=== PATIENT | female | born 1950 | race Caucasian/White ===

== ENCOUNTER → 2016-06-28 21:45 | Emergency (ER) | payer SELFPAY ==
[~2016-06-28 21:45] MED LIST: Potassium Chlor TAB* 20 MEQ TAB.ER PO ONE
[2016-06-28 23:24] LABS: Hematocrit 43 % (35-47); Hemoglobin 14.3 g/dl (12.0-16.0); Mean Corpuscular HGB Conc 33 g/dl (31-36); Mean Corpuscular Hemoglobin 30 pg (27-31); Mean Corpuscular Volume 92 fL (80-97); Mean Platelet Volume 9 um3 (7.4-10.4); Red Blood Count 4.72 10^6/ul (4.0-5.4); Red Cell Distribution Width 13 % (10.5-15); White Blood Count 11.1 10^3/ul (3.5-10.8)
[2016-06-28 23:32] LABS: Albumin 4.4 g/dL (3.2-5.2); BUN/Creatinine Ratio 19.4 (8-20); Calcium 9.5 mg/dL (8.6-10.3); EGFR African American 104.5 (>60); EGFR Non-African American 81.3 (>60); Globulin 3.4 g/dL (2-4); Potassium 3.3 mmol/L (3.5-5.0); Total Bilirubin 0.5 mg/dL (0.2-1.0); Total Protein 7.8 g/dL (6.4-8.9)
[2016-06-28 23:33] LABS: Troponin I 0.01 ng/mL (<0.04)
--- NOTE | 2016-06-29 00:47 | ED ---
Beth Freeman Rebecca, scribed for NahidRobbie on 06/28/16 at 2300 . Upper Extremity Pain - HPI Summary HPI Summary: Pt is a 65 y/o F who presents to ED c/o LUE numbness. Reports numbness began suddenly this morning upon waking up and has been constant since onset. Numbness is from the elbow and down into the hand. 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 Denies CP, SOB, LE weakness. No PMHx TIA, CVA. - History of Current Complaint Chief Complaint: EDExtremityUpper Stated Complaint: NO FEELING IN LEFT HAND Time Seen by Provider: 06/28/16 22:55 Hx Obtained From: Patient Onset/Duration: Started Hours Ago - this morning, Still Present Timing: Constant Severity Initially: Mild Severity Currently: Mild Aggravating Factor(s): Nothing Alleviating Factor(s): Nothing Associated Signs & Symptoms: Positive: Numbness/Tingling - L arm/hand numbness, Other - Denies LE weakness. Negative: Chest Pain, SOB - Allergies/Home Medications Allergies/Adverse Reactions: Allergies Allergy/AdvReac Type Severity Reaction Status Date / Time No Known Allergies Allergy Verified 10/18/13 13:49 PMH/Surg Hx/FS Hx/Imm Hx Endocrine/Hematology History: Denies: Hx Diabetes, Hx Thyroid Disease, Hx Anemia, Hx Unexplained Bleeding Cardiovascular History: Denies: Hx Aneurysm, Hx Angina, Hx Angioplasty, Hx Auto Implanted Cardiovert Defib, Hx Cardiac Arrest, Hx Cardiomegaly, Hx Congenital Heart Disease, Hx Congestive Heart Failure, Hx Coronary Artery Disease, Hx Deep Vein Thrombosis, Hx Embolism, Hx Hypercholesterolemia, Hx Hypotension, Hx Hypertension, Hx Pacemaker/ICD, Hx Peripheral Vascular Disease, Hx Rheumatic Fever, Hx Syncope, Hx Valvular Heart Disease, Other Cardiovascular Problems/Disorders Respiratory History: Reports: Hx Chronic Obstructive Pulmonary Disease (COPD), Hx Pneumonia - 1X many years ago, Other Respiratory Problems/Disorders - copd Denies: Hx Asthma, Hx Cystic Fibrosis, Hx Lung Cancer, Hx Pleural Effusion, Hx Pulmonary Edema, Hx Pulmonary Embolism, Hx Seasonal Allergies, Hx Sleep Apnea GI History: Denies: Hx Cirrhosis, Hx Crohn's Disease, Hx Diverticulosis, Hx Gall Bladder Disease, Hx Gastroesophageal Reflux Disease, Hx Gastrointestinal Bleed, Hx Hiatal Hernia, Hx Irritable Bowel, Hx Jaundice, Hx Obstructive Bowel, Hx Ileostomy, Hx Pyloric Stenosis, Hx Ulcer History: Reports: Hx Kidney Stones - passed a stone when she was preg about 40 yrs ago Denies: Hx Acute Renal Failure, Hx Benign Prostatic Hyperplasia, Hx Chronic Renal Failure, Hx Dialysis, Hx Kidney Infection, Other Problems/Disorders Musculoskeletal History: Denies: Hx Arthritis Sensory History: Reports: Hx Contacts or Glasses - for reading Denies: Hx Hearing Aid Opthamlomology History: Reports: Hx Contacts or Glasses - for reading Psychiatric History: Denies: Hx Anxiety - Cancer History Hx Chemotherapy: No Hx Radiation Therapy: No - Surgical History Surgery Procedure, Year, and Place: none Hx Anesthesia Reactions: No - none Infectious Disease History: Denies: Hx Hepatitis, Hx Human Immunodeficiency Virus (HIV), Hx Tuberculosis , Traveled Outside the [place] in Last 30 Days - Family History Known Family History: Negative: Cardiac Disease, Diabetes - Social History Alcohol Use: None Substance Use Type: Reports: None Smoking Status (MU): Former Smoker Type: Cigarettes Review of Systems Negative: Chest Pain Negative: Shortness Of Breath Positive: Weakness - Denies LE weakness, Numbness - L arm/hand numbness All Other Systems Reviewed And Are Negative: Yes Physical Exam Triage Information Reviewed: Yes Vital Signs On Initial Exam: Initial Vitals Temp Pulse Resp BP Pulse Ox 97.7 F 82 18 159/81 96 06/28/16 21:56 06/28/16 21:56 06/28/16 21:56 06/28/16 21:56 06/28/16 21:56 Vital Signs Reviewed: Yes Appearance: Positive: Well-Appearing, No Pain Distress Skin: Positive: Warm, Skin Color Reflects Adequate Perfusion, Dry Eyes: Positive: EOMI, HELADIO ENT: Positive: Normal ENT inspection Neck: Positive: Supple, Nontender Respiratory/Lung Sounds: Positive: Clear to Auscultation, Breath Sounds Present Cardiovascular: Positive: RRR, Pulses are Symmetrical in both Upper and Lower Extremities Abdomen Description: Positive: Nontender, Soft Bowel Sounds: Positive: Present Musculoskeletal: Positive: Normal, Strength/ROM Intact Neurological: Positive: Normal, Sensory/Motor Intact, Alert, Oriented to Person Place, Time Diagnostics - Vital Signs Vital Signs Temp Pulse Resp BP Pulse Ox 06/28/16 21:56 97.7 F 82 18 159/81 96 - Laboratory Lab Results: Lab Results 06/28/16 06/28/16 06/28/16 Range/Units 22:45 22:45 22:45 WBC 11.1 H (3.5-10.8) 10^3/ul RBC 4.72 (4.0-5.4) 10^6/ul Hgb 14.3 (12.0-16.0) g/dl Hct 43 (35-47) % MCV 92 (80-97) fL MCH 30 (27-31) pg MCHC 33 (31-36) g/dl RDW 13 (10.5-15) % Plt Count 247 (150-450) 10^3/ul MPV 9 (7.4-10.4) um3 Neut % (Auto) 74.5 (38-83) % Lymph % (Auto) 16.4 L (25-47) % [place] % (Auto) 6.5 (1-9) % Eos % (Auto) 2.1 (0-6) % Baso % (Auto) 0.5 (0-2) % Absolute Neuts (auto) 8.2 H (1.5-7.7) 10^3/ul Absolute Lymphs (auto) 1.8 (1.0-4.8) 10^3/ul Absolute Monos (auto) 0.7 (0-0.8) 10^3/ul Absolute Eos (auto) 0.2 (0-0.6) 10^3/ul Absolute Basos (auto) 0.1 (0-0.2) 10^3/ul Absolute Nucleated RBC 0.01 10^3/ul Nucleated RBC % 0.1 INR (Anticoag Therapy) 0.95 (0.89-1.11) APTT 27.4 (26.0-36.3) seconds Sodium 135 (133-145) mmol/L Potassium 3.3 L (3.5-5.0) mmol/L Chloride 100 L (101-111) mmol/L Carbon Dioxide 28 (22-32) mmol/L Anion Gap 7 (2-11) mmol/L BUN 14 (6-24) mg/dL Creatinine 0.72 (0.51-0.95) mg/dL Est GFR ( Amer) 104.5 (>60) Est GFR (Non-Af Amer) 81.3 (>60) BUN/Creatinine Ratio 19.4 (8-20) Glucose 164 H (70-100) mg/dL Calcium 9.5 (8.6-10.3) mg/dL Total Bilirubin 0.50 (0.2-1.0) mg/dL AST 28 (13-39) U/L ALT 35 (7-52) U/L Alkaline Phosphatase 109 H (34-104) U/L Troponin I 0.01 (<0.04) ng/mL Total Protein 7.8 (6.4-8.9) g/dL Albumin 4.4 (3.2-5.2) g/dL Globulin 3.4 (2-4) g/dL Albumin/Globulin Ratio 1.3 (1-3) Result Diagrams: 06/28/16 22:45 06/28/16 22:45 Lab Statement: Any lab studies that have been ordered have been reviewed, and results considered in the medical decision making process. - Radiology CXR Xray Interpretation: No Acute Changes Radiology Interpretation Completed By: ED Physician - CT Brain CT CT Interpretation Completed By: Radiologist - There are chronic microvascular change sin the cerebral white matter. No visible acute infarct. Please note that chronic microvascular disease can obscure small acute infarcts and infarcts less than 6 hours old may not be detectable on CT. MRI is more seneitive for this. No hemorrhage. NO shift or herniation. No visible mass. Osseous structures are intact. - EKG 2317 Cardiac Rate: NL - 71 bpm EKG Rhythm: Sinus Rhythm EKG Interpretation: no acute changes Re-Evaluation - Re-Evaluation First Eval Re-Evaluation Time: 00:45 Change: Improved Comment: Pt's sx have significantly improved. Course/Dx - Course Assessment/Plan: Pt came to the ED with LUE numbness, from the elbow down with no weakness since waking this morning. Does not report any other focal neurological deficits. Labs and CT were performed. No acute findings. Pt will be D/C to home with a Dx of peripheral neuropathy and a followup with her PCP in 3 days. - Diagnoses Differential Diagnosis/HQI/PQRI: Positive: Bursitis, Nursemaid's Elbow, Strain Provider Diagnoses: Peripheral neuropathy Discharge - Discharge Plan Condition: Stable Disposition: HOME Patient Education Materials: Peripheral Neuropathy (ED) Referrals: [facility] PHYSICIAN REFERRAL [Outside] - 3 Days No Primary Care Phys,NOPCP [Primary Care Provider] - The documentation as recorded by the Beth anthony Rebecca accurately reflects the service I personally performed and the decisions made by , Robbie Whitfield.
[2016-06-29 01:18] VITALS: BP 147/76
--- NOTE | 2016-06-29 09:42 | RAD ---
INDICATION: Left arm pain and numbness COMPARISON: Most recent comparison chest x-ray is dated October 22, 2013 TECHNIQUE: PA and lateral views of the chest were obtained. FINDINGS: The heart and mediastinum are normal in size and contour. Similar to the previous chest x-ray the lungs appear mildly hyperaerated, the diaphragm are flattened and there is a increased retrosternal airspace. The lungs are otherwise grossly clear. There is no evidence of large pleural effusion. Visualized bones are normal for the patient's age. There is no radiographic evidence of free air beneath the diaphragm IMPRESSION: CHEST X-RAY FINDINGS ARE CONSISTENT WITH CHRONIC OBSTRUCTIVE PULMONARY DISEASE SIMILAR IN APPEARANCE TO THE PREVIOUS CHEST X-RAY.
--- NOTE | 2016-06-29 10:00 | RAD ---
INDICATION: Left arm numbness COMPARISON: None. TECHNIQUE: Contiguous axial sections of the brain were obtained from the skull base to the vertex without contrast. FINDINGS: The ventricles, cisterns and sulci exhibit symmetric involutional changes. There is periventricular and subcortical white matter hypoattenuation most consistent with chronic microvascular disease. The campbell-white matter differentiation is adequately maintained and there is no sulcal effacement. No significant focal abnormality or mass effect is present. There is no evidence for intracranial hemorrhage. No significant focal osseous abnormality is present. There is mild to moderate mucosal thickening of the bilateral ethmoid air cells. Remaining visualized paranasal sinuses are appropriately aerated. The mastoid air cells are well-aerated. IMPRESSION: Chronic appearing findings include evidence of microvascular disease, involutional changes as well as paranasal sinus mucosal disease.
== END | disposition home or self-care (01) ==
LOC: ED 21:45
DX: G62.9 Polyneuropathy, unspecified (principal); J44.9 Chronic obstructive pulmonary disease, unspecified; Z87.442 Personal history of urinary calculi; Z87.891 Personal history of nicotine dependence
CPT/HCPCS: 36415; 70450; 71020; 80053; 84484; 85025; 85610; 85730; 93005; 99283; A9270-GY

== ENCOUNTER 2016-07-01 13:35 | Emergency (ER) | payer SELFPAY ==
[2016-07-01] MEDS ORDERED: Aspirin TAB* 325 MG PO ONE (13:54)
[2016-07-01] MEDS ORDERED: NS 0.9% 1000 ML* 1,000 ML IV ONE (13:54)
--- NOTE | 2016-07-01 14:22 | RAD ---
INDICATION: Weakness. Facial numbness COMPARISON: CT brain June 28, 2016 TECHNIQUE: Noncontrast axial source images were acquired from the skull base to the vertex. FINDINGS: Ventricles/sulci: There is cortical atrophy with compensatory dilatation of the CSF spaces. Brain parenchyma: There is periventricular and subcortical white matter change compatible with chronic ischemia. Intracranial hemorrhage:None. Extra-axial spaces: There are no abnormal extra axial fluid collections or evidence of extra-axial mass. Calvarium: There is no calvarial fracture or other calvarial abnormality. Scalp: There is no evidence of scalp or extracalvarial soft tissue abnormality. Paranasal sinuses/mastoid: The paranasal sinuses and mastoid air cells are clear. Other: None. IMPRESSION: CORTICAL ATROPHY WITH CHRONIC MICROVASCULAR ISCHEMIC CHANGES. NO ACUTE FINDINGS.
[2016-07-01 14:35] LABS: Hematocrit 42 % (35-47); Hemoglobin 14.1 g/dl (12.0-16.0); Mean Corpuscular HGB Conc 34 g/dl (31-36); Mean Corpuscular Hemoglobin 31 pg (27-31); Mean Corpuscular Volume 91 fL (80-97); Mean Platelet Volume 9 um3 (7.4-10.4); Red Blood Count 4.61 10^6/ul (4.0-5.4); Red Cell Distribution Width 13 % (10.5-15); White Blood Count 11.1 10^3/ul (3.5-10.8)
[2016-07-01 14:39] LABS: Urine Bacteria Absent (Absent); Urine Bilirubin Negative (Negative); Urine Glucose Negative (Negative); Urine Nitrite Negative (Negative)
[2016-07-01 14:50] LABS: BUN/Creatinine Ratio 12.7 (8-20); Calcium 9.2 mg/dL (8.6-10.3); EGFR Non-African American 94.8 (>60); Globulin 3.4 g/dL (2-4); HDL Cholesterol 31.9 mg/dL; Potassium 3.8 mmol/L (3.5-5.0); Total Bilirubin 0.7 mg/dL (0.2-1.0); Total Protein 7.4 g/dL (6.4-8.9)
[2016-07-01 14:52] VITALS: BP 145/72
[2016-07-01] MEDS ORDERED: Iohexol 350* (CONTRAST) 500 ML MDV IV ONE (14:55)
--- NOTE | 2016-07-01 15:52 | RAD ---
HISTORY: Left upper extremity weakness, facial numbness, carotid occlusion COMPARISONS: Head CT dated July 01, 2016 TECHNIQUE: Multiple contiguous axial CT scans were obtained of the head and neck After the administration of nonionic intravenous contrast timed to the systemic arterial phase of contrast enhancement. Coronal and sagittal multiplanar reformations are submitted for review. Multiple 3-D maximum intensity projection reconstructions are also submitted for review. FINDINGS: CTA NECK: AORTIC ARCH: There is calcific atherosclerotic disease of the aortic arch, without ostial or proximal stenosis of the cephalic great vessels. There is a normal three-vessel branching pattern. RIGHT VERTEBRAL ARTERY: The right vertebral artery is patent along its course, without stenosis. LEFT VERTEBRAL ARTERY: The left vertebral artery is patent along its course, without stenosis. DOMINANCE: The vertebral arteries are codominant. RIGHT COMMON CAROTID ARTERY: The right common carotid artery is patent. The right carotid bifurcation occurs at C3-C4 RIGHT INTERNAL CAROTID ARTERY: There is atheromatous plaque of the right carotid bifurcation, with high-grade, approximately 90%, short segment stenosis of the proximal right internal carotid artery by ulcerated plaque. There is high attenuation material noted within the plaque is seen on axial image 111 which may represent intraplaque hemorrhage. RIGHT EXTERNAL CAROTID ARTERY: The right external carotid artery is unremarkable. LEFT COMMON CAROTID ARTERY: The left common carotid artery is patent. The left carotid bifurcation occurs at C4-C5 LEFT INTERNAL CAROTID ARTERY: The left internal carotid artery is tortuous. There is calcified plaque of the left carotid bifurcation, resulting in approximately 60% stenosis of the proximal left internal carotid artery by NASCET criteria. LEFT EXTERNAL CAROTID ARTERY: The left external carotid artery is unremarkable. VENOUS CIRCULATION: The venous system is unremarkable. SALIVARY GLANDS: The parotid glands, submandibular glands, sublingual glands are normal. NASAL CAVITY/NASOPHARYNX: The nasal cavity and nasopharynx are normal. ORAL CAVITY/OROPHARYNX: The oral cavity is obscured by streak artifact from dental amalgam. The visualized oral cavity and oropharynx are unremarkable. LARYNGEAL APPARATUS/HYPOPHARYNX: The laryngeal apparatus and hypopharynx are normal. UPPER AIRWAY/UPPER ESOPHAGUS: The visualized upper airway and esophagus are normal. LUNG APICES: There is emphysematous change of the lung apices bilaterally. THYROID GLAND: The thyroid gland is normal. LYMPH NODES: There is no lymphadenopathy by size criteria. BONES AND SOFT TISSUES: Degenerative changes are noted along the spine. CTA HEAD: INTRACRANIAL CIRCULATION: There is no aneurysm, vascular malformation, occlusion, or stenosis of the visualized intracranial circulation. The anterior communicating artery complex is clear. Bilateral posterior communicating arteries are identified. VENOUS CIRCULATION: The venous system is unremarkable. PERFUSION: There is no obvious parenchymal perfusion deficit. HEMORRHAGE/INFARCT: There is focal hypoattenuation of the right posterior frontal lobe suggestive of subacute nonhemorrhagic infarct. Elsewhere, there is no hemorrhage or acute infarct. MASSES/SHIFT: There is no mass or shift. EXTRA-AXIAL SPACES: There are no extra-axial fluid collections. SULCI AND VENTRICLES: The sulci and ventricles are normal in size and position for the patient's stated age. CEREBRUM: There is hypoattenuation of the periventricular and subcortical white matter. As noted above, there is more focal hypoattenuation of the right posterior frontal lobe BRAINSTEM: There are no focal parenchymal abnormalities. CEREBELLUM: There are no focal parenchymal abnormalities. PARANASAL SINUSES: The paranasal sinuses are clear. ORBITS: The orbits are unremarkable. BONES AND SOFT TISSUE: No bone or soft tissue abnormalities are noted. OTHER: There is no abnormal enhancement. IMPRESSION: 1. THERE IS FOCAL HYPOATTENUATION OF THE RIGHT POSTERIOR FRONTAL LOBE SUGGESTIVE OF SUBACUTE NONHEMORRHAGIC INFARCT. 2. DIFFUSE HYPOATTENUATION OF THE PERIVENTRICULAR AND SUBCORTICAL WHITE MATTER, SUGGESTIVE CHRONIC SMALL VESSEL ISCHEMIC CHANGE. 3. THERE IS HIGH-GRADE STENOSIS OF THE RIGHT INTERNAL CAROTID ARTERY, APPROXIMATELY 90% BY NASCET CRITERIA, BY ULCERATED ATHEROMATOUS PLAQUE. ADDITIONALLY, THERE IS HIGH ATTENUATION MATERIAL WITHIN THE PLAQUE WHICH MAY SUGGEST INTRAPLAQUE HEMORRHAGE. 4. APPROXIMATELY 60% STENOSIS OF THE LEFT INTERNAL CAROTID ARTERY BY NASCET CRITERIA. 5. NO ANEURYSM, VASCULAR MALFORMATION, OCCLUSION, OR STENOSIS OF THE VISUALIZED INTRACRANIAL CIRCULATION. PRELIMINARY FINDINGS WERE DISCUSSED WITH DR. MANSFIELD AT APPROXIMATELY 3:49 P.M. ON JULY 01, 2016. CPT II Codes: 3100F
--- NOTE | 2016-07-01 16:44 | CONSULT ---
Consult Consult: 07/01/16 neurology consult 65 yo RHF; no HTN, HL or DM, remote heavy tobacco (1.5 ppd x 45 yrs; quit 8 yrs ago), anti platelet vitor., p/w left hand numbness since waking up Fri am. No facial, leg or truncal symptoms at the time, although over weekend noted some left cheek numbness as well. Left hand symptoms have waxed and waned, with some incoordination ad object dropping; no leg, visual, language, bulbar issues. She wonders if her symptoms are related to playing online games and resting her left elbow on the table surface. She came to the ED with her initial symptoms last Fri, and was discharged after a head CT; she had further testing after re presenting today. Allergies/Meds - no meds PMH - jose FH - father history unknown; mother unknown causes SH - tob use as per hpi; no etoh; was working at [employer] in past ROS - 10 point review as per hpi , otherwise negative; no plapitations general Examination: no apparent distress, no edema, female of stated age; vs per emr Neurologic Examination Mental Status: alert and oriented; affect reactive, no clear neglect, fluent speech Cranial Nerves: Funduscopy with sharp discs, II-XII intact; soto full to confrontation Motor: normal bulk, tone and power save left delt 5-, subtle left hand pronation without drift Sensory: vibration and touch are intact Reflexes: 2 throughout symmetrically. Plantar responses are flexor left/ withdrawal right Coordination: finger to nose is intermittently mildly dysmetric left Gait: deferred Serologies: Cbc, coags, chem, LFTs are all normal or negative; LDL 153 Imaging: - Head CTs reviewed and have several subtle right frontal subcortical areas of hypodensity of unclear age - CTA head and neck reviewed and has high grade short segment right ICA stenosis at bifurcation - Cxr w/ copd - 03/09 mammo neg Impression: 65 year old with prior heavy tobacco use as only known vascular risk factor ( also dyslipidemia by labs), p/w 4 days of evolving left hand and face mostly sensory symptoms, with subtle left hand motor deficits on exam, and CT/CTA suggestive of right frontal infarct due to ipsilateral high grade carotid stenosis. We discussed that this will need to be surgically addressed and will require transfer to a facility with vascular surgical services. Case d/w ED; plan for ASA, statin, transfer.
--- NOTE | 2016-07-01 16:54 | ED ---
ting Freeman Timothy, scribed for Magdy Miles MD on 07/01/16 at 1404 . Neurological HPI - HPI Summary HPI Summary: Maida Adamson is a 65 yo female presenting to [facility] with numbness on the left side of her face and weakness of her LUE since 06/28/16. She states she has been walking fine. She is not in any current pain. Pt was seen 06/28/16 in [facility] for numbness of her LUE and had a full work up before being discharged with peripheral neuropathy. Her MHx includes COPD, bronchitis, PNA, anorexia nervosa , obesity, kidney stones, and tobacco use. - History of Current Complaint Stated Complaint: TIA Time Seen by Provider: 07/01/16 13:46 Hx Obtained From: Patient Onset/Duration: Sudden Onset, Started days ago Timing: Constant Onset Severity: Moderate Current Severity: Moderate Neurological Deficit Location: LUE Pain Intensity: 0 Pain Scale Used: 0-10 Numeric Character: Numbness/Tingling - left side facial numbness, Motor Weakness - LUE Associated Signs and Symptoms: Positive: Weakness - LUE weakness, Numbness - left side of face - Allergy/Home Medications Allergies/Adverse Reactions: Allergies Allergy/AdvReac Type Severity Reaction Status Date / Time No Known Allergies Allergy Verified 10/18/13 13:49 Home Medications: Home Medications NK [No Home Medications Reported] 07/01/16 [History Confirmed 07/01/16] PMH/Surg Hx/FS Hx/Imm Hx Endocrine/Hematology History: Denies: Hx Diabetes, Hx Thyroid Disease, Hx Anemia, Hx Unexplained Bleeding Cardiovascular History: Denies: Hx Aneurysm, Hx Angina, Hx Angioplasty, Hx Auto Implanted Cardiovert Defib, Hx Cardiac Arrest, Hx Cardiomegaly, Hx Congenital Heart Disease, Hx Congestive Heart Failure, Hx Coronary Artery Disease, Hx Deep Vein Thrombosis, Hx Embolism, Hx Hypercholesterolemia, Hx Hypotension, Hx Hypertension, Hx Pacemaker/ICD, Hx Peripheral Vascular Disease, Hx Rheumatic Fever, Hx Syncope, Hx Valvular Heart Disease, Other Cardiovascular Problems/Disorders Respiratory History: Reports: Hx Chronic Obstructive Pulmonary Disease (COPD), Hx Pneumonia - 1X many years ago, Other Respiratory Problems/Disorders - copd Denies: Hx Asthma, Hx Cystic Fibrosis, Hx Lung Cancer, Hx Pleural Effusion, Hx Pulmonary Edema, Hx Pulmonary Embolism, Hx Seasonal Allergies, Hx Sleep Apnea GI History: Denies: Hx Cirrhosis, Hx Crohn's Disease, Hx Diverticulosis, Hx Gall Bladder Disease, Hx Gastroesophageal Reflux Disease, Hx Gastrointestinal Bleed, Hx Hiatal Hernia, Hx Irritable Bowel, Hx Jaundice, Hx Obstructive Bowel, Hx Ileostomy, Hx Pyloric Stenosis, Hx Ulcer History: Reports: Hx Kidney Stones - passed a stone when she was preg about 40 yrs ago Denies: Hx Acute Renal Failure, Hx Benign Prostatic Hyperplasia, Hx Chronic Renal Failure, Hx Dialysis, Hx Kidney Infection, Other Problems/Disorders Musculoskeletal History: Denies: Hx Arthritis Sensory History: Reports: Hx Contacts or Glasses - for reading Denies: Hx Hearing Aid Opthamlomology History: Reports: Hx Contacts or Glasses - for reading Psychiatric History: Denies: Hx Anxiety - Cancer History Hx Chemotherapy: No Hx Radiation Therapy: No - Surgical History Surgery Procedure, Year, and Place: none Hx Anesthesia Reactions: No - none Infectious Disease History: No Infectious Disease History: Denies: Hx Hepatitis, Hx Human Immunodeficiency Virus (HIV), Hx Tuberculosis , Traveled Outside the [place] in Last 30 Days - Family History Known Family History: Negative: Cardiac Disease, Diabetes - Social History Alcohol Use: None Substance Use Type: Reports: None Smoking Status (MU): Former Smoker Type: Cigarettes Review of Systems Constitutional: Negative Eyes: Negative ENT: Negative Cardiovascular: Negative Respiratory: Negative Gastrointestinal: Negative Genitourinary: Negative Musculoskeletal: Negative Skin: Negative Positive: Weakness - LUE, Numbness - left side of face Psychological: Normal All Other Systems Reviewed And Are Negative: Yes Physical Exam - Summary Physical Exam Summary: The patient is well-nourished in no acute distress and in no acute pain. The skin is warm and dry and skin color reflects adequate perfusion. HEENT: The head is normocephalic and atraumatic. The pupils are equal and reactive. The conjunctivae are clear and without drainage. Nares are patent and without drainage. Mouth reveals moist mucous membranes and the throat is without erythema and exudate. The external ears are intact. The ear canals are patent and without drainage. The tympanic membranes are intact. Neck is supple with full range of motion and non-tender. There are no carotid bruits. There is no neck vein distension. Respiratory: Chest is non-tender. Lungs are clear to auscultation and breath sounds are symmetrical and equal. Cardiovascular: Hear is regular rate and rhythm. There is no murmur or rub auscultated. There is no peripheral edema and pulses are symmetrical and equal. Abdomen: The abdomen is soft and non-tender. There are normal bowel sounds heard in all four quadrants and there is no organomegaly palpated. Musculoskeletal: There is no back pain noted. Extremities are non-tender with full range of motion. There is good capillary refill. There is no peripheral edema or calf tenderness elicited. Neurological: Patient is alert and oriented to person, place and time. The patient has LUE motor drift. Cranial nerves are grossly intact. Deep tendon reflexes are symmetrical and equal in all four extremities. There is no decreased sensation on the left side of her face. Her speech is not slurred.There is no facial paresis. She cannot do finger to nose on the left side. Psychiatric: The patient has an appropriate affect and does not exhibit any anxiety or depression. Triage Information Reviewed: Yes Vital Signs On Initial Exam: Initial Vitals Temp Pulse Resp BP 96.8 F 71 16 174/73 07/01/16 13:55 07/01/16 13:55 07/01/16 13:55 07/01/16 13:55 Vital Signs Reviewed: Yes Diagnostics - Vital Signs Vital Signs Temp Pulse Resp BP Pulse Ox 07/01/16 13:57 96.8 F 67 14 174/73 97 07/01/16 13:55 96.8 F 71 16 174/73 - Laboratory Lab Results: Lab Results 07/01/16 07/01/16 07/01/16 Range/Units 14:20 14:20 14:20 WBC 11.1 H (3.5-10.8) 10^3/ul RBC 4.61 (4.0-5.4) 10^6/ul Hgb 14.1 (12.0-16.0) g/dl Hct 42 (35-47) % MCV 91 (80-97) fL MCH 31 (27-31) pg MCHC 34 (31-36) g/dl RDW 13 (10.5-15) % Plt Count 260 (150-450) 10^3/ul MPV 9 (7.4-10.4) um3 Neut % (Auto) 68.4 (38-83) % Lymph % (Auto) 19.7 L (25-47) % [place] % (Auto) 7.0 (1-9) % Eos % (Auto) 3.4 (0-6) % Baso % (Auto) 1.5 (0-2) % Absolute Neuts (auto) 7.6 (1.5-7.7) 10^3/ul Absolute Lymphs (auto) 2.2 (1.0-4.8) 10^3/ul Absolute Monos (auto) 0.8 (0-0.8) 10^3/ul Absolute Eos (auto) 0.4 (0-0.6) 10^3/ul Absolute Basos (auto) 0.2 (0-0.2) 10^3/ul Absolute Nucleated RBC 0.01 10^3/ul Nucleated RBC % 0.1 INR (Anticoag Therapy) 0.96 (0.89-1.11) Sodium (133-145) mmol/L Potassium (3.5-5.0) mmol/L Chloride (101-111) mmol/L Carbon Dioxide (22-32) mmol/L Anion Gap (2-11) mmol/L BUN (6-24) mg/dL Creatinine (0.51-0.95) mg/dL Est GFR ( Amer) (>60) Est GFR (Non-Af Amer) (>60) BUN/Creatinine Ratio (8-20) Glucose (70-100) mg/dL Lactic Acid (0.5-2.0) mmol/L Calcium (8.6-10.3) mg/dL Total Bilirubin (0.2-1.0) mg/dL AST (13-39) U/L ALT (7-52) U/L Alkaline Phosphatase (34-104) U/L Troponin I (<0.04) ng/mL Total Protein (6.4-8.9) g/dL Albumin (3.2-5.2) g/dL Globulin (2-4) g/dL Albumin/Globulin Ratio (1-3) Triglycerides mg/dL Cholesterol mg/dL LDL Cholesterol mg/dL HDL Cholesterol mg/dL Urine Color Straw Urine Appearance Clear Urine pH 6.0 (5-9) Ur Specific [place] 1.001 L (1.010-1.030) Urine Protein Negative (Negative) Urine Ketones Negative (Negative) Urine Blood Negative (Negative) Urine Nitrate Negative (Negative) Urine Bilirubin Negative (Negative) Urine Urobilinogen Negative (Negative) Ur Leukocyte Esterase 3+ H (Negative) Urine WBC (Auto) Trace(0-5/hpf) (Absent) Urine RBC (Auto) Absent (Absent) Ur Squamous Epith Cells Present H (Absent) Urine Bacteria Absent (Absent) Urine Glucose Negative (Negative) Blood Type Antibody Screen 07/01/16 07/01/16 07/01/16 Range/Units 14:20 14:20 14:20 WBC (3.5-10.8) 10^3/ul RBC (4.0-5.4) 10^6/ul Hgb (12.0-16.0) g/dl Hct (35-47) % MCV (80-97) fL MCH (27-31) pg MCHC (31-36) g/dl RDW (10.5-15) % Plt Count (150-450) 10^3/ul MPV (7.4-10.4) um3 Neut % (Auto) (38-83) % Lymph % (Auto) (25-47) % [place] % (Auto) (1-9) % Eos % (Auto) (0-6) % Baso % (Auto) (0-2) % Absolute Neuts (auto) (1.5-7.7) 10^3/ul Absolute Lymphs (auto) (1.0-4.8) 10^3/ul Absolute Monos (auto) (0-0.8) 10^3/ul Absolute Eos (auto) (0-0.6) 10^3/ul Absolute Basos (auto) (0-0.2) 10^3/ul Absolute Nucleated RBC 10^3/ul Nucleated RBC % INR (Anticoag Therapy) (0.89-1.11) Sodium 137 (133-145) mmol/L Potassium 3.8 (3.5-5.0) mmol/L Chloride 103 (101-111) mmol/L Carbon Dioxide 28 (22-32) mmol/L Anion Gap 6 (2-11) mmol/L BUN 8 (6-24) mg/dL Creatinine 0.63 (0.51-0.95) mg/dL Est GFR ( Amer) 122.0 (>60) Est GFR (Non-Af Amer) 94.8 (>60) BUN/Creatinine Ratio 12.7 (8-20) Glucose 130 H (70-100) mg/dL Lactic Acid 1.2 (0.5-2.0) mmol/L Calcium 9.2 (8.6-10.3) mg/dL Total Bilirubin 0.70 (0.2-1.0) mg/dL AST 24 (13-39) U/L ALT 30 (7-52) U/L Alkaline Phosphatase 118 H (34-104) U/L Troponin I 0.00 (<0.04) ng/mL Total Protein 7.4 (6.4-8.9) g/dL Albumin 4.0 (3.2-5.2) g/dL Globulin 3.4 (2-4) g/dL Albumin/Globulin Ratio 1.2 (1-3) Triglycerides 257 mg/dL Cholesterol 236 mg/dL LDL Cholesterol 153 mg/dL HDL Cholesterol 31.9 mg/dL Urine Color Urine Appearance Urine pH (5-9) Ur Specific [place] (1.010-1.030) Urine Protein (Negative) Urine Ketones (Negative) Urine Blood (Negative) Urine Nitrate (Negative) Urine Bilirubin (Negative) Urine Urobilinogen (Negative) Ur Leukocyte Esterase (Negative) Urine WBC (Auto) (Absent) Urine RBC (Auto) (Absent) Ur Squamous Epith Cells (Absent) Urine Bacteria (Absent) Urine Glucose (Negative) Blood Type O Positive Antibody Screen Negative Result Diagrams: 07/01/16 14:20 07/01/16 14:20 Lab Statement: Any lab studies that have been ordered have been reviewed, and results considered in the medical decision making process. - CT Brain CT Interpretation: No Acute Changes - IMPRESSION: CORTICAL ATROPHY WITH CHRONIC MICROVASCULAR ISCHEMIC CHANGES. NO ACUTE FINDINGS. CT Interpretation Completed By: Radiologist CTA Head/neck CT Interpretation: Positive (See Comments) - IMPRESSION: 1. THERE IS FOCAL HYPOATTENUATION OF THE RIGHT POSTERIOR FRONTAL LOBE SUGGESTIVE OF SUBACUTE NONHEMORRHAGIC INFARCT. 2. DIFFUSE HYPOATTENUATION OF THE PERIVENTRICULAR AND SUBCORTICAL WHITE MATTER, SUGGESTIVE CHRONIC SMALL VESSEL ISCHEMIC CHANGE. 3. THERE IS HIGH-GRADE STENOSIS OF THE RIGHT INTERNAL CAROTID ARTERY, APPROXIMATELY 90% BY NASCET CRITERIA, BY ULCERATED ATHEROMATOUS PLAQUE. ADDITIONALLY, THERE IS HIGH ATTENUATION MATERIAL WITHIN THE PLAQUE WHICH MAY SUGGEST INTRAPLAQUE HEMORRHAGE. 4. APPROXIMATELY 60% STENOSIS OF THE LEFT INTERNAL CAROTID ARTERY BY NASCET CRITERIA. 5. NO ANEURYSM, VASCULAR MALFORMATION, OCCLUSION, OR STENOSIS OF THE VISUALIZED INTRACRANIAL CIRCULATION. CT Interpretation Completed By: Radiologist - EKG 1445 Cardiac Rate: NL - 69 BPM EKG Interpretation: NSR @ 69 BPM, old inferior wall line, nonspecific ST changes. No STEMI. NIH Scale - NIH Scale Level of Consciousness: Alert/Keenly Responsive Ask Patient the Month and His/Her Age: Both Correct Ask Pt to Open/Close Eyes and Sap Developer/Release Non-Paretic Hand: Both Correctly Best Gaze (Only Horizontal Eye Movement): Normal Visual Field Testing: No Visual Loss Facial Paresis-Pt to Smile & Close Eyes or Grimace Symmetry: Normal/Symmetrical Motor Function - Right Arm: No Drift-Holds 10 Seconds Motor Function - Left Arm: Drifts LT 10 seconds Motor Function - Right Leg: No Drift-Holds 10 Seconds Motor Function - Left Leg: No Drift-Holds 10 Seconds Limb Ataxia-Must be out of Proportion to Weakness Present: Present in One Limb - LUE finger to nose failure Sensory (Use Pinprick to Test Arms/Legs/Trunk/Face): Normal Best Language (Describe Picture, Name Items): No Aphasia Dysarthria (Read Several Words): Normal Extinction and Inattention: No Abnormality Total Score: 2 Re-Evaluation - Re-Evaluation First Eval Re-Evaluation Time: 14:07 Change: Improved Comment: LUE weakness has resolved Second Eval Re-Evaluation Time: 16:06 Change: Unchanged Comment: Discussed lab and imaging studies with Pt. Pt is agreeable to current course of Tx. Fourth Eval Re-Evaluation Time: 16:28 Change: Unchanged Comment: Discussed further course of Tx and transfer to [facility], Pt is agreeable to this plan. Course/Dx - Course Assessment/Plan: Maida Adamson is a 65 yo female presenting to [facility] with LUE weakness and numbness on the left side of her face. She received ASA and IV fluids in the ED. Her Brain CT suggests no acute findings (see documentation). Her Head/Neck CTA suggests 1. THERE IS FOCAL HYPOATTENUATION OF THE RIGHT POSTERIOR FRONTAL LOBE SUGGESTIVE OF. SUBACUTE NONHEMORRHAGIC INFARCT. 2. DIFFUSE HYPOATTENUATION OF THE PERIVENTRICULAR AND SUBCORTICAL WHITE MATTER,. SUGGESTIVE CHRONIC SMALL VESSEL ISCHEMIC CHANGE. 3. THERE IS HIGH-GRADE STENOSIS OF THE RIGHT INTERNAL CAROTID ARTERY, APPROXIMATELY 90%. BY NASCET CRITERIA, BY ULCERATED ATHEROMATOUS PLAQUE. ADDITIONALLY, THERE IS HIGH. ATTENUATION MATERIAL WITHIN THE PLAQUE WHICH MAY SUGGEST INTRAPLAQUE HEMORRHAGE. 4. APPROXIMATELY 60% STENOSIS OF THE LEFT INTERNAL CAROTID ARTERY BY NASCET CRITERIA. 5. NO ANEURYSM, VASCULAR MALFORMATION, OCCLUSION, OR STENOSIS OF THE VISUALIZED. INTRACRANIAL CIRCULATION. After clinical examination, review of her lab and imaging studies, and consultation with Dr. Mayer, Dr. Puri, and Dr. Horta, she will be transferred to [facility] for a vascular surgeon with right frontal CVA and right carotid stenosis. - Differential Dx Differential Diagnoses Neuro: Positive: Cerebrovascular Accident, Hypoglycemia, Metabolic Abnormality, Transient Ischemic Attack - Diagnoses Provider Diagnoses: Carotid stenosis, right, right frontal cerebrovascular accident - Physician Notifications Discussed Care of Patient With: 1548 - Dr. Mayer (radiology) - Dr. Mayer called to inform that CTA shows a subacute infarct in the right frontal lobe and some plaque in the right carotid, possible high grade stenosis. 1602 - Dr. Puri (neurology) - discussed Pt condition, agrees to evaluate Pt. 1625 - Dr. Puri (neurology) - recommends transfer to [facility] for a vascular surgeon. 1637 - Dr. Horta ([facility]) - discussed Pt condition, accepts Pt for transfer for services of vascular surgeon. Instructed by Provider To: Transfer - Critical Care Time Critical Care Time: 30-74 min Discharge - Discharge Plan Condition: Stable Disposition: TRANS HIGHER LVL OF CARE FAC Discharge Disposition Comment: [facility] for vascular surgeon. The documentation as recorded by the ting anthony Timothy accurately reflects the service I personally performed and the decisions made by , Magdy Miles MD.
== END 2016-07-01 17:17 | disposition short-term general hospital (02) ==
LOC: ED 13:35
DX: I65.21 Occlusion and stenosis of right carotid artery (principal); I63.9 Cerebral infarction, unspecified; R53.1 Weakness
CPT/HCPCS: 36415; 70450; 70496; 70498; 80053; 80061; 81003; 81015; 83605; 84484; 85025; 85610; 86850; 86900; 86901; 87086; 93005; 99283; Q9967